=== PATIENT | male | born 1970 | race African-American/Black ===

== ENCOUNTER 2024-07-15 10:20 | Day surgery (SDC) | payer OTHER ==
[2024-07-15] MEDS ORDERED: Sodium Chloride 0.9(Preservative Free) 10 ML IJ ONE (10:21)
[2024-07-15] MEDS ORDERED: dexAMETHasone sodium phosphate IJ ONE (10:21)
[2024-07-15] MEDS ORDERED: Depo-Medrol 40 MG/ML IM ONE (10:21)
[2024-07-15] MEDS ORDERED: LIDOCAINE HCL 1% AMPUL 5 ML IJ ONE (10:21)
--- NOTE | 2024-07-15 13:26 | XRAY ---
Indication: Caudal CAMPBELL. Intraoperative fluoroscopy provided for 30 seconds. 3 digital spot image submitted for interpretation demonstrates caudal needle tip projecting mid sacrum. Small amount of contrast injected for needle tip placement. Correlate with intraoperative findings/report.
--- NOTE | 2024-07-15 13:26 | XRAY ---
Indication: Left piriformis injection. Intraoperative fluoroscopy provided for 13 seconds. Single digital spot image submitted for interpretation demonstrates posterior needle tip projecting over left piriformis. Small amount of contrast injected for needle tip placement. Correlate with intraoperative findings/report.
--- NOTE | 2024-07-15 14:58 | XRAY ---
13 seconds of fluoroscopy was used in surgery for a left piriformis injection.
--- NOTE | 2024-07-15 14:58 | XRAY ---
30 seconds of fluoroscopy was used in surgery for a caudal CAMPBELL.
== END 2024-07-15 13:05 | disposition home or self-care (01) ==
LOC: SDC-PAIN 10:20
PROVIDERS: ATTEND Psychiatry & Neurology Pain Medicine
DX: M54.16 Radiculopathy, lumbar region (principal); M79.18 Myalgia, other site
CPT/HCPCS: 20552; 62323; 72170; 72220; 77002; 77003; 82947; J1100; Q9966